=== PATIENT | female | born 1995 | race Asian ===

== ENCOUNTER 2017-12-12 07:07 | Inpatient (IN) | payer MEDICAID ==
[2017-12-12 08:31] VITALS: BMI 28.7
[2017-12-12] MEDS ORDERED: Acetaminophen 500 MG TAB PO PRN (08:38)
[2017-12-12] MEDS ORDERED: Butorphanol Tartrate 1 MG/ML VIAL SLOW IVP PRN (08:38)
[2017-12-12] MEDS ORDERED: Methylergonovine 0.2 MG/ML VIAL IM PRN (08:45)
[2017-12-12] MEDS ORDERED: NS w/ Oxytocin 10 units 500 ML IV SCH ×2 (08:45)
[2017-12-12] MEDS ORDERED: HYDROcodone/Acetaminophen 5/325 mg Tablet PO PRN ×2 (08:45)
[2017-12-12] MEDS ORDERED: Ibuprofen 800 MG TAB PO PRN (08:45)
[2017-12-12] MEDS ORDERED: Diphenoxylate HCl/Atropine Tablet PO PRN ×2 (08:45)
[2017-12-12] MEDS ORDERED: Misoprostol 200 MCG TAB RC PRN (08:45)
[2017-12-12] MEDS ORDERED: Carboprost 250 MCG/ML AMP IM PRN (08:45)
[2017-12-12 08:54] LABS: Hemoglobin 13.1 g/dL (12.0-16.0); Mean Corpuscular HGB CONC 33.8 g/dL (32.0-36.0); Mean Corpuscular Hemoglobin 29.3 pg (27.0-31.0); Mean Corpuscular Volume 86.8 fl (81.0-99.0); Mean Platelet Volume 8.7 fL (7.4-10.4); Platelet Count 326 thou/uL (130-400); RBC Distribution Width 13.5 % (11.5-14.5); Red Blood Cell (RBC) Count 4.46 mill/uL (4.20-5.40); White Blood Cell (WBC) Count 12.6 thou/uL (4.8-10.8)
[2017-12-12 09:20] LABS: HBSAg Index 0.23 S/CO (0-0.99); Hep B Surf Ag Non-Reactive S/CO (NonReactive); Syphilis Antibody Nonreactive (Nonreactive); Syphilis Antibody Index 0.07 S/CO (<1.00 Non-Reactive)
[2017-12-12] MEDS ORDERED: NS / Oxytocin 40 units/1000ml 1,000 ML ONE (12:45)
[2017-12-12] MEDS ORDERED: Lidocaine 1% (PF) 30 ML VIAL ONE (12:47)
[2017-12-12] MEDS ORDERED: Bisacodyl 10 MG SUPP PR PRN (13:57)
[2017-12-12] MEDS ORDERED: Ondansetron HCl/PF 4 MG/2 ML Vial IVP PRN (13:57)
[2017-12-12] MEDS ORDERED: Zolpidem Tartrate 5 MG TAB PO PRN (13:57)
[2017-12-12] MEDS ORDERED: Preparation H Ointment 28 GM TUBE PR PRN (13:57)
[2017-12-12] MEDS ORDERED: Adacel (T-DAP) 0.5 ML VIAL IM ONE (13:57)
[2017-12-12] MEDS ORDERED: Benzocaine/Menthol 20-0.5% 60 ML CAN TOP PRN (13:57)
[2017-12-12] MEDS ORDERED: Milk Of Magnesia 30 ML UDCUP PO PRN (13:57)
[2017-12-12] MEDS ORDERED: Acetaminophen/Codeine 30-300mg Tablet PO PRN ×2 (13:57)
[2017-12-12] MEDS ORDERED: Lanolin Ointment 7 GM TUBE TOP PRN (13:57)
[2017-12-12] MEDS ORDERED: diphenhydrAMINE 25 MG CAP PO PRN (13:57)
[2017-12-12] MEDS ORDERED: Misoprostol 200 MCG TAB VAG SCH (14:00)
[2017-12-12] MEDS ORDERED: NS / Oxytocin 40 units/1000ml 1,000 ML IV SCH (14:00)
[2017-12-12] MEDS: Ibuprofen 800 MG TAB PO SCH ×2 (14:32→21:41)
[2017-12-12] MEDS ORDERED: Methylergonovine 0.2 MG/ML VIAL ONE (14:58)
[2017-12-12] MEDS ORDERED: Morphine 10 MG/ML VIAL ONE (15:12)
[2017-12-12] MEDS ORDERED: Midazolam HCl 2 mg/2 ml Vial ONE ×2 (15:46→16:35)
[2017-12-12] MEDS ORDERED: Ketamine 50 MG/ML VIAL ONE (15:54)
[2017-12-12 16:05] LABS: Hemoglobin 9.7 g/dL (12.0-16.0); Mean Corpuscular HGB CONC 33.8 g/dL (32.0-36.0); Mean Corpuscular Hemoglobin 29.8 pg (27.0-31.0); Mean Platelet Volume 7.8 fL (7.4-10.4); Platelet Count 259 thou/uL (130-400); RBC Distribution Width 13.3 % (11.5-14.5); Red Blood Cell (RBC) Count 3.26 mill/uL (4.20-5.40); White Blood Cell (WBC) Count 25.4 thou/uL (4.8-10.8)
[2017-12-12 16:12] LABS: PTT 25.1 SEC (22.9-36.1); Prothrombin Time 13.7 SEC (12.0-14.7)
[2017-12-12 16:13] LABS: D-Dimer Test 2.29 *mcg/mL (0.27-0.43)
[2017-12-12 16:22] LABS: Band 7 % (5-11); Lymphocytes 9 % (21-51); MDiff Complete? YES; Monocytes 1 % (0-10); Neutrophil 83 % (42-75); PLT Morphology Comment Appears Adequate; Polychromasia SLIGHT = 2-3 cells (100X) (0-2/hpf)
[2017-12-12] MEDS: Lactated Ringer's 1,000 ML IV SCH ×2 (19:32→23:14)
[2017-12-12] MEDS: Ferrous Sulfate 325 MG TAB PO SCH (19:34)
[2017-12-12 21:33] LABS: Hemoglobin 10.6 g/dL (12.0-16.0); Mean Corpuscular HGB CONC 34.5 g/dL (32.0-36.0); Mean Corpuscular Hemoglobin 29.8 pg (27.0-31.0); Mean Corpuscular Volume 86.3 fl (81.0-99.0); Mean Platelet Volume 7.8 fL (7.4-10.4); Platelet Count 212 thou/uL (130-400); RBC Distribution Width 12.8 % (11.5-14.5); Red Blood Cell (RBC) Count 3.55 mill/uL (4.20-5.40); White Blood Cell (WBC) Count 19.6 thou/uL (4.8-10.8)
[2017-12-12] MEDS: Docusate Calcium (SURFAK) 240 MG CAP PO SCH (21:41)
[2017-12-12 21:45] LABS: INR-International Normal Ratio 1.1; PTT 25.1 SEC (22.9-36.1); Prothrombin Time 14.1 SEC (12.0-14.7)
--- NOTE | 2017-12-13 03:26 | PRG ---
PROGRESS NOTE DATE OF SERVICE: 12/12/2017 I was called to the room, an hour or two after the patient's uncomplicated vaginal delivery for post bleeding. Nurse reported blood loss up to the point of calling to about 800 mL. prior to arrival The patient received 800 mcg of Cytotec. Patient had stable vital signs, was alert, oriented, and awake. She had approximately another 100-150 mL in the pad under her bottom upon my arrival. Methergine 0.25mg IM, and 1000mg Lysteda were given. Bleeding continued. On exam, fundus was easily made firm. The patient did not tolerate any kind of exams. After explaining to the patient our concerns of the persistent vaginal bleeding and the need for a speculum exam, patient consented to an exam. Patient was placed in lithotomy position on the broken down labor bed. With difficulty, a speculum exam was performed. There were no perineal or vaginal lacerations. The patient was very tender and had difficulty cooperating , patient was given a total of 10 mg of morphine and 50 mg of Demerol with little impact in her difficulty sitting still. After medications were given The patient did report she was not in pain, but just couldnt keep herself from "clinching down." Pt clearly was anxious and fearful. On exam, I did have concerns of a posterior cervical laceration, but again due to the patient's inability to relax, it was impossible for me to visualize long enough to confirm that. Pt was type and crossed two units prbcs, a second IV was placed and fluid continued to be bolused. Anesthesia was notified and the OR placed on alert. At this point, Dr. Reece was notified by phone of the situation. After a few more attempts to confirm posterior cervical lac with out success a Vaginal pack was placed and the decision was made to move forward to the operating room where under better anesthesia I could address the problem. At that point, the total estimated blood loss was approximately 1400 mL of blood loss with the bleeding under control with the packing. When we are about to proceed to the operating room Dr. Reece presented to the room and took over immediate care. In short, pt was sedated by anesthesia provider and the patient was placed again in lithotomy position and with the help with 2 assistants, Dr. Reece was successful in repairing the posterior cervical lac. A vaginal pack was placed at the end of the procedure as the laceration was not completely hemostatic. During the process, the patient's second IV was placed. The patient was given fluid boluses totaling approximately 2500 mL and a unit of blood during the procedure. The Seo catheter was in place and the bladder was empty. Immediate labs showed a hemoglobin of 9.7, hematocrit 28.7, platelets of 259, 000. Fibrinogen of 275, repeat labs at 9:30 p.m., approximately 5 hours after the incident and 2 hours after the second unit of blood. Patient has a hemoglobin of 10.6, hematocrit 30.6, platelets of 212,000. I do not anticipate this is at all accurate. This evening upon evaluation of the patient, she was alert and oriented and patient was explained once again the situation that had occurred and all questions were answered during the entire incidents. The patient's vital signs remained stable . This evening time of evaluation, patient was noted to have blood pressure in the 101/61, heart rate of 83, satting 99% on room air. Total blood was estimated at the end of the procedure at her evaluation at 2 L. MTDD
[2017-12-13] MEDS: Ibuprofen 800 MG TAB PO SCH ×3 (05:20→22:05)
[2017-12-13 05:47] LABS: Hemoglobin 9.4 g/dL (12.0-16.0); Mean Corpuscular HGB CONC 33.4 g/dL (32.0-36.0); Mean Corpuscular Hemoglobin 29.1 pg (27.0-31.0); Mean Platelet Volume 7.8 fL (7.4-10.4); Platelet Count 198 thou/uL (130-400); RBC Distribution Width 13.1 % (11.5-14.5); Red Blood Cell (RBC) Count 3.24 mill/uL (4.20-5.40); White Blood Cell (WBC) Count 13.4 thou/uL (4.8-10.8)
[2017-12-13] MEDS: Lactated Ringer's 1,000 ML IV SCH (07:03)
--- NOTE | 2017-12-13 08:25 | PDOC.EVN ---
Event Note - Event Note Event Note: Resting comfortably. VSS Vaginal pack removed per Dr. Reece's request. No active bleeding seen after pack removed. Pt. tolerated this well.
[2017-12-13] MEDS: Docusate Calcium (SURFAK) 240 MG CAP PO SCH ×2 (14:31→22:05)
[2017-12-13] MEDS: Ferrous Sulfate 325 MG TAB PO SCH ×2 (14:31→19:11)
[2017-12-13] MEDS: Prenatal Vitamin 1 TAB PO SCH (14:31)
[2017-12-14] MEDS: Ibuprofen 800 MG TAB PO SCH ×3 (06:10→21:12)
[2017-12-14] MEDS: Prenatal Vitamin 1 TAB PO SCH (08:18)
[2017-12-14] MEDS: Ferrous Sulfate 325 MG TAB PO SCH ×2 (08:18→17:27)
[2017-12-14] MEDS: Docusate Calcium (SURFAK) 240 MG CAP PO SCH ×2 (08:18→21:12)
[2017-12-15 05:09] LABS: Hemoglobin 8.8 g/dL (12.0-16.0)
[2017-12-15] MEDS: Ibuprofen 800 MG TAB PO SCH ×2 (06:29→13:41)
[2017-12-15] MEDS: Ferrous Sulfate 325 MG TAB PO SCH (08:50)
[2017-12-15] MEDS: Prenatal Vitamin 1 TAB PO SCH (08:50)
[2017-12-15] MEDS: Docusate Calcium (SURFAK) 240 MG CAP PO SCH (08:50)
[2017-12-15 10:25] VITALS: BP 108/61; TEMP 96.8
== END 2017-12-15 15:26 | disposition home or self-care (01) | DRG 774 ==
LOC: L&D/OP 07:07 → UNDOADMIN 07:58 → L&D-LIB 07:58 → L&D 19:43 → 3SW 12-13 15:19
PROVIDERS: ADMIT Obstetrics & Gynecology; ATTEND Obstetrics & Gynecology
PROC: 10E0XZZ Delivery of Products of Conception, External Approach (ICD-10-PCS; principal; 2017-12-12)
PROC: 0KQM0ZZ Repair Perineum Muscle, Open Approach (ICD-10-PCS; 2017-12-12)
DX: O70.1 Second degree perineal laceration during delivery (principal); O72.1 Other immediate postpartum hemorrhage; Z37.0 Single live birth; D62 Acute posthemorrhagic anemia; Z3A.40 40 weeks gestation of pregnancy
CPT/HCPCS: 36415; 36430; 51702; 85014; 85018; 85027; 85379; 85384; 85610; 85730; 86780; 86850; 86900; 86901; 87340; 94640; 99285; J2001; J2175; J2210; J2250; J2270; J7620; P9016